=== PATIENT | male | born 1955 | race Two or more races ===

== ENCOUNTER 2020-11-08 09:02 | Outpatient (REF) | payer MEDICARE, MEDICAID, SELFPAY ==
[2020-11-08 10:16] LABS: Hematocrit 43.1 % (42-52); Hemoglobin 14.2 g/dl (14.0-18.0); Mean Corpuscular HGB Conc 32.9 g/dl (31.0-36.0); Mean Corpuscular Volume 91.1 fL (80-98); Mean Platelet Volume 10.6 fL (9.4-12.4); Platelet Count 204 X10*3/uL (160-400); Red Blood Count 4.73 X10*6/uL (4.60-5.80); Red Cell Distribution Width 13.1 % (11.0-16.0); White Blood Count 9.8 X10*3/uL (4.8-10.8)
[2020-11-08 11:00] LABS: Alanine Aminotransferase 51 U/L (0-40); Albumin Level 4.4 g/dL (3.5-5.0); Alkaline Phosphatase 64 U/L (39-117); Anion Gap 16 (12-20); Aspartate Amino Transferase 30 U/L (5-37); Bilirubin Total 0.4 mg/dL (0.0-1.0); Blood Urea Nitrogen 18 mg/dL (9-16); Calcium 9.5 mg/dL (8.4-10.2); Carbon Dioxide 23 mmol/L (22-29); Chloride 104 mmol/L (96-108); Cholesterol 162 mg/dL; Estimated Glomerular Filt Rate > 60; Glucose Random 110 mg/dL (60-115); HDL Cholesterol 47 mg/dL; LDL Cholesterol Calculated 104 mg/dl; Potassium 4.4 mmol/L (3.3-5.1); Sodium 139 mmol/L (135-145); Total Protein 8.1 g/dL (6.5-8.0); Triglycerides 57 mg/dL
[2020-11-08 11:24] LABS: TSH reflex Free T4 0.57 uIU/mL (0.32-4.0)
[2020-11-08 11:31] LABS: Prostate Specific Antigen 1.35 ng/mL (<0.05-4.0)
== END 2020-11-08 09:03 | disposition home or self-care (01) ==
LOC: HO.LAB 09:02
PROVIDERS: PCP General Practice; Visit Provider General Practice
DX: I10 Essential (primary) hypertension (principal)
CPT/HCPCS: 36415; 80053; 80061; 84153; 84443; 85027

== ENCOUNTER 2021-06-26 18:15 | Emergency (ER) | payer OTHER, SELFPAY ==
--- NOTE | ~2021-06-26 | CT_ITS ---
EXAMINATION: CT ABDOMEN AND PELVIS WITH CONTRAST CLINICAL INFORMATION: Right lower quadrant and right flank pain. Evaluate for appendicitis or stone. COMPARISON: None TECHNIQUE: Multidetector volumetric images were obtained from the superior aspect of the liver through the pubic symphysis following administration 85 mL of Omnipaque 350 intravenous contrast. Sagittal and coronal reformatted images were obtained on the technologist's workstation. Oral contrast: No This CT examination was performed using dose optimization techniques as appropriate, variously including the following: *Automated exposure control *Adjustment of mA and/or kV according to patient size (this includes techniques or standardized protocols for targeted exams where dose is matched to indication/reason for exam; i.e. extremities or head) *Use of iterative reconstruction technique DLP: 1100 mGy-cm FINDINGS: LUNG BASES: The visualized lung bases are unremarkable. LIVER, GALLBLADDER, AND BILIARY TREE: The liver is normal in size, shape, and attenuation. No focal hepatic lesion or biliary ductal dilatation is present. Gallbladder unremarkable. PANCREAS: Unremarkable. SPLEEN: Unremarkable. ADRENAL GLANDS: Unremarkable. KIDNEYS AND URETERS: The kidneys are normal in size, shape, and attenuation. Bilateral subcentimeter simple fluid attenuating cysts are benign and require no further follow-up. No hydronephrosis, hydroureter, or calculi seen. No perinephric stranding. BLADDER: Unremarkable. GASTROINTESTINAL TRACT: The appendix is normal. Stomach, small and large bowel are unremarkable. ABDOMINAL WALL: No significant hernia is appreciated. LYMPH NODES: Normal. VASCULAR: Aorta mildly atherosclerotic but normal caliber. Patent venous structures. PELVIC VISCERA: Unremarkable. OSSEOUS STRUCTURES: No acute or suspicious osseous abnormalities. Degenerative changes present throughout the imaged spine. CT/CT abdomen pelvis w con IMPRESSION: No urinary calculi or hydronephrosis. Normal appendix. No acute findings within the abdomen or pelvis to explain the patient's symptomatology.
[2021-06-26 19:10] VITALS: BP 164/86; PULSE 79; O2SAT 97
[2021-06-26 19:16] VITALS: BP 142/69; PULSE 74; RESP 16; TEMP 36.6; O2SAT 98; BMI 28.3
[2021-06-26 22:54] LABS: MANUAL DIFF FLAG NO
[2021-06-26 23:13] LABS: Basophils Percent Auto 0.1 % (0-2); Eosinophils Absolute Auto 0.1 X10*3/uL (0.0-0.4); Eosinophils Percent Auto 1.3 % (0-4); Hematocrit 42.1 % (42.0-52.0); Hemoglobin 13.5 g/dl (14.0-18.0); Imm Gran Abs Auto 0.03 X10*3/uL (0.00-0.03); Imm Gran Pct Auto 0.3 % (0.0-0.4); Lymphocytes Absolute Auto 1.7 X10*3/uL (1.2-4.9); Lymphocytes Percent Auto 18.3 % (20-40); Mean Corpuscular HGB Conc 32.1 g/dl (31.0-36.0); Mean Corpuscular Hemoglobin 28.1 pg (27.0-33.0); Mean Corpuscular Volume 87.5 fL (80.0-98.0); Mean Platelet Volume 10.8 fL (9.4-12.4); Monocytes Absolute Auto 0.4 X10*3/uL (0.1-1.2); Monocytes Percent Auto 4.1 % (2-11); Neutrophils Absolute Auto 7.2 x10*3/uL (2.0-8.3); Neutrophils Percent Auto 75.9 % (45-73); Platelet Count 193 X10*3/uL (160-400); Red Blood Count 4.81 X10*6/uL (4.60-5.80); Red Cell Distribution Width 14.1 % (11.0-16.0); White Blood Count 9.5 X10*3/uL (4.8-10.8)
[2021-06-26 23:15] LABS: Alanine Aminotransferase 20 U/L (0-40); Albumin Level 4.3 g/dL (3.5-5.0); Alkaline Phosphatase 73 U/L (39-117); Anion Gap 10 (12-20); Aspartate Amino Transferase 14 U/L (5-37); Bilirubin Total 0.5 mg/dL (0.0-1.0); Blood Urea Nitrogen 14 mg/dL (9-16); Calcium 9.7 mg/dL (8.4-10.2); Carbon Dioxide 28 mmol/L (22-29); Chloride 106 mmol/L (96-108); Creatinine Clr Calc Pharmacy 96.7; Estimated Glomerular Filt Rate > 60; Glucose Random 119 mg/dL (60-115); Lipase 48 U/L (8-78); Potassium 4.3 mmol/L (3.3-5.1); Sodium 140 mmol/L (135-145); Total Protein 7.4 g/dL (6.5-8.0)
[2021-06-26 23:18] VITALS: BP 115/55; PULSE 69; RESP 16; TEMP 36.4
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
[2021-06-27] MEDS: 0.9 % Sodium Chloride 1,000 ML 999 ML IV (00:10)
[2021-06-27] MEDS: Ketorolac Tromethamine 15 MG/ML VIAL IVPUSH (00:14)
[2021-06-27] MEDS: ondansetron HCL 4 MG/2 ML VIAL IVPUSH (00:14)
[2021-06-27] MEDS: iohexoL 350 MG/ML 100 ML INFUS..BTL 85 ML IV (00:45)
[2021-06-27 02:14] LABS: Appearance Urine CLEAR; Color Urine YELLOW; Glucose Urine UA NEG (NEG); Leukocyte Esterase Urine NEG (NEG); Nitrite Urine NEG (NEG); PH 6.5 (5.0-8.0); Specific Gravity - Urine <= 1.005 (1.005-1.025); Urine Blood NEG (NEG); Urine Ketones NEG (NEG); Urine Protein NEG (NEG-TRACE)
[2021-06-27] MEDS: Tamsulosin HCL 0.4 MG CAPSULE PO (02:21)
[2021-06-27] MEDS: levoFLOXacin 500 MG TABLET PO (02:21)
== END 2021-06-27 02:29 | disposition home or self-care (01) ==
PROVIDERS: Emergency Provider Emergency Medicine Emergency Medical Services; PCP General Practice
DX: N41.9 Inflammatory disease of prostate, unspecified (principal); R22.2 Localized swelling, mass and lump, trunk; R10.2 Pelvic and perineal pain; R10.31 Right lower quadrant pain; N50.811 Right testicular pain; Z79.899 Other long term (current) drug therapy
CPT/HCPCS: 36415; 74177; 80053; 81003; 83690; 85025; 99284; J1885; J2405; Q9967

== ENCOUNTER 2021-07-20 21:00 | Emergency (ER) | payer OTHER, SELFPAY ==
--- NOTE | ~2021-07-20 | US_ITS ---
EXAMINATION: US VENOUS ULTRASOUND WITH DOPPLER LOWER EXTREMITY, RIGHT CLINICAL INFORMATION: Right lower extremity pain COMPARISON: None TECHNIQUE: Ultrasound of the deep veins is performed from the hip to the calf with compression sonography and color and pulse Doppler assessment. Spectral analysis with color-flow imaging is performed. FINDINGS: There is normal venous compression and respiratory variation and augmented flow. The visualized common femoral vein, superficial femoral vein, profunda femoral vein, popliteal vein, and the trifurcation region shows no evidence of deep venous thrombosis. The posterior tibial vein is seen and appears normal. The peroneal vein is not seen. There is no significant popliteal fossa cyst. If the patient's symptoms persist, followup ultrasound in 5 days 7 days might be of value to exclude proximal propagation from a non-visualized calf vein. US/US venous duplex LE RT IMPRESSION: No DVT demonstrated in the right lower extremity. There was nonvisualization of the peroneal veins.
--- NOTE | ~2021-07-20 | XR_ITS ---
EXAMINATION: XR HIP, RIGHT CLINICAL INFORMATION: Right hip pain. COMPARISON: None TECHNIQUE: AP pelvis and two-view series of the right hip of the right hip. FINDINGS: Multifocal enthesopathic changes are noted. No fractures or subluxations are identified. No gross arthropathic changes of the right hip visualized. Partial visualization is made of multilevel endplate and facet hypertrophic changes within the lower lumbar spine. XR/XR hip RT w PEL1V IMPRESSION: *No acute abnormalities identified.
[2021-07-20 21:14] VITALS: BP 174/98; PULSE 80
[2021-07-20 21:23] VITALS: BP 131/86; PULSE 69; RESP 15; TEMP 36.5; O2SAT 98; BMI 29.6
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
[2021-07-21 00:48] VITALS: PULSE 86; RESP 16; O2SAT 96
[2021-07-21 01:26] LABS: Appearance Urine HAZY; Color Urine YELLOW; Glucose Urine UA NEG (NEG); Leukocyte Esterase Urine NEG (NEG); Nitrite Urine NEG (NEG); PH 6.5 (5.0-8.0); Specific Gravity - Urine 1.025 (1.005-1.025); Urine Blood NEG (NEG); Urine Ketones NEG (NEG); Urine Protein NEG (NEG-TRACE)
[2021-07-21 02:02] VITALS: BP 152/77; PULSE 77; RESP 18; O2SAT 98
[2021-07-21] MEDS: oxyCODONE HCl Immed Release 5 MG TABLET PO (02:37)
== END 2021-07-21 03:58 | disposition home or self-care (01) ==
PROVIDERS: Emergency Provider Emergency Medicine
DX: R10.30 Lower abdominal pain, unspecified (principal); G89.29 Other chronic pain; M79.604 Pain in right leg; M25.551 Pain in right hip; I10 Essential (primary) hypertension
CPT/HCPCS: 51798; 73502; 81003; 93971; 99284; 99285

== ENCOUNTER 2023-02-16 10:50 | Outpatient (REF) | payer OTHER, SELFPAY ==
--- NOTE | ~2023-02-16 | MR_ITS ---
EXAMINATION: MRI ABDOMEN WITH AND WITHOUT CONTRAST CLINICAL INFORMATION: PANCREATIC CYST SEEN IN 2020 COMPARISON: 06/28/[address] scan TECHNIQUE: Multiple routine MRI sequences through the abdomen were obtained on a high-field 1.5Tesla MRI. Pre-and postcontrast images with 8 mL of Gadavist intravenous contrast were obtained. This included a dynamic contrast-enhanced technique. FINDINGS: Lung bases: The visualized lung bases are unremarkable. Liver: The liver is normal in size, shape, and signal. No suspicious focal hepatic lesions seen. Specifically no suspicious arterial phase enhancing lesions or suspicious washout of contrast on later phases. No biliary ductal dilatation. Gallbladder: Likely mild adenomyomatosis of the gallbladder fundus. No suspicious gallstones or filling defects. No gallbladder wall thickening or pericholecystic inflammatory changes. Pancreas: Specific attention was given to the pancreas. In the medial most aspect of the uncinate process, there is a subtle T2 bright cystic structure measuring up to 1.2 cm in diameter when measured on the axial images. On a thick slab MIP coronal images this is more irregular in shape measuring 1.5 x 1.3 cm in size. There is a smaller 0.7 cm cystic structure seen along the right-sided aspect of the uncinate processes well I do not appreciate any abnormal enhancement. This was much more subtle process on the 06/27/2021 CT scan but the medial cystic component also measured 1.2 cm in size in retrospect on the prior CT scan. Pancreatic parenchyma is otherwise homogeneous in signal. No pancreatic ductal dilatation or obstruction. No peripancreatic inflammatory changes or fluid. Spleen: Unremarkable Adrenals: Unremarkable Kidneys: Kidneys are normal in size, shape, and signal. No suspicious renal mass lesion seen. No hydronephrosis or perinephric edema. Other: There is partial visualization of a fat-containing lesion deep to the right scapula. On the axial images this currently measures up to 8.3 x 4.8 cm in size and in similar orientation on the prior 06/27/2021 CT scan this had measured 10.6 x 5.1 cm in size. There is some heterogeneity to the fat signal currently as well as on the prior study possibly due to component of underlying fat necrosis. This is incompletely assessed on this abdominal MRI. Clinical correlation would be helpful. MR/MR abdomen wo/w con IMPRESSION: 1. There are 2 small T2 bright cystic structures seen within the uncinate process of the pancreas as described above. I do not appreciate any suspicious or worrisome features at this time. The larger cystic structure in the medial most aspect of the uncinate process of the pancreas measures up to 1.5 cm in maximal diameter on the coronal thick slab MIP images. The smaller cystic structure along the right-sided aspect of the uncinate process measures 0.7 cm in size. The cystic changes were less well appreciated on the prior CT scan. But where seen, the medial component is similar in size. I do not appreciate any suspicious or worrisome features to these cystic structures. Etiology is uncertain. Sequela of prior pancreatitis would be favored with this appearance and distribution. Branch duct IPM) would be difficult to exclude. There are several different paradigms for following pancreatic cysts. Follow-up MRI in one years time may be helpful to assure stability. 2. There is partial visualization of a fat-containing lesion deep to the right scapula. This is incompletely assessed on this abdominal MRI. There is some heterogeneity to the fat signal currently as well as on the prior study possibly due to component of underlying fat necrosis. Low-grade fatty lesions such as lipoma with internal fat necrosis could have this appearance but this is incompletely assessed on this abdominal MRI. Clinical correlation would be helpful.
[2023-02-16] MEDS: gadobutroL 10 ML VIAL IVPUSH (11:56)
== END 2023-02-16 10:51 | disposition home or self-care (01) ==
LOC: HO.MRI 10:50
PROVIDERS: PCP General Practice; Visit Provider General Practice
DX: K86.2 Cyst of pancreas (principal)
CPT/HCPCS: 74183; A9585

== ENCOUNTER 2024-01-07 15:37 | Emergency (ER) | payer OTHER, SELFPAY ==
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
[2024-01-07 15:53] VITALS: BP 133/84; PULSE 76; RESP 20; TEMP 37.2; O2SAT 98; BMI 26.6
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
--- OUTSIDE RECORDS SUMMARY | 2024-01-07 17:26 | XMS_ITS | Continuity of Care Document ---
Author Organization [employer] ter Address [address] [place] [address]- Care Team Providers Care Stem Roller Or Crusher Operator Name Role Phone Kate Garvin MD Primary Care Physician [place] [facility] [place] 12/08/[address] [address]- Discharge Disposition: A-Transfer SNF Attending Physician: Donny Portillo MD Admitting Physician: Donny Portillo MD Referring Physician: Not on Staff, Referring MD Allergies, Adverse Reactions, Alerts Substance Reaction Severity Status NKA Active Immunizations Given and Recorded Vaccine Date Status Refusal Reason SARS-CoV-2 (COVID-19) Ad26 vaccine 06/27/20 Record ed tetanus/diphtheria/pertussis, acel(Tdap) 02/06/13 Recorded Medications acetaminophen 325 mg oral tablet 650 mg, 2, tablet, By Mouth, Every 4 hours, PRN, Refills 0, Maintenance, Pain , Mild, 12/02/20 8:47:00 EDT, Partial fill upon patient request if the prescription is for a schedule II opioid drug. Start Date: 12/02/20 Status: Ordered apixaban = 10 mg, By Mouth, 2 times a day, 0 Refills, Maintenance, 12/02/20 8:47:00 EDT, Tablet, Partial fill upon patient request if the prescription is for a schedule II opioid drug. Start Date: 12/02/20 Status: Ordered aspirin 81 mg oral delayed release tablet 1 tablet = 81 mg, By Mouth, Daily, Maintenance, 11/16/20 11:22:00 EDT, CR Tablet Start Date: 11/16/20 Status: Ordered atorvastatin 10 mg oral tablet 1 tablet = 10 mg, By Mouth, Daily, Maintenance, 11/16/20 11:22:00 EDT Start Date: 11/16/20 Status: Ordered bisacodyl 10 mg rectal suppository 1 supp = 10 mg, Rectally, Daily, 0 Refills, Maintenance, 12/02/20 8:48:00 EDT, Suppository, Partialfill upon patient request if the prescription is for a schedule II opioid drug. Start Date: 12/02/20 Status: Ordered cholecalciferol 1000 intl units oral tablet 1 tablet = 25 mcg, By Mouth, Daily, Maintenance, 11/16/20 11:22:00 EDT, Tablet Start Date: 11/16/20 Status: Ordered Colace sodium 100 mg oral capsule 100 mg, 1, capsule, By Mouth, 2 times a day, Refills 0, Maintenance, 12/02/20 8:48:00 EDT, Partial fill upon patient request if the prescription is for a schedule II opioid drug. Start Date: 12/02/20 Status: Ordered Duoneb Inhalation Solution 1, vials, BAND Nebulizer, 4 times a day, Refills 0, Maintenance, 12/02/20 8:47:00 EDT, Inhalation Solution Start Date: 12/02/20 Status: Ordered famotidine 20 mg oral tablet 20 mg, 1, tablet, By Mouth, 2 times a day, PRN, Maintenance, as needed, 11/16/20 11:22:00 EDT Start Date: 11/16/20 Status: Ordered gabapentin 300 mg oral capsule 300 mg, 1, capsule, By Mouth, 3 times a day, Refills 0, Maintenance, 12/02/20 8:48:00 EDT, Partial fill upon patient request if the prescription is for a schedule II opioid drug. Start Date: 12/02/20 Status: Ordered gabapentin 300 mg oral capsule 300 mg, Capsule, By Mouth, 12/08/20 15:00:00 EDT Start Date: 12/08/20 Stop Date: 12/08/20 Status: Completed Insulin Lispro 2-10 units, Subcutaneous Injection, 3 times a day with meals, 0 Refills, Maintenance, 12/02/20 8:51:00 EDT, Injection, Partial fill upon patient request if the prescription is for a schedule II opioid drug. Start Date: 12/02/20 Status: Ordered lisinopril 20 mg oral tablet 30 mg, 1.5, tablet, By Mouth, Daily, Maintenance, 11/16/20 11:22:00 EDT Start Date: 11/16/20 Status: Ordered Ocular Lubricant Eye, Left, Every 4 hours, PRN Other, Dryness., 0 Refills, Maintenance, 12/02/20 8:51:00 EDT, Ophth Solution, Partial fill upon patient request if the prescription is for a schedule II opioid drug. Start Date: 12/02/20 Status: Ordered thiamine 100 mg oral tablet 100 mg, 1, tablet, By Mouth, Daily, Refills 0, Maintenance, 12/02/20 8:51:00 EDT, Partial fill uponpatient request if the prescription is for a schedule II opioid drug. Start Date: 12/02/20 Status: Ordered Results Orders for Microbiology Reports Name Date Urine Culture 11/18/20 Microbiology Reports TEST:Urine Culture STATUS:Auth (Verified) BODY SITE: SOURCE:SUKH COLLECTED DATE/TIME:11/18/20 9:45 PM Urine Culture SPECIMEN DESCRIPTION : BLADDER SPECIAL REQUESTS : NONE CULTURE : >100,000 COL/ML ESCHERICHIA COLI REPORT STATUS : FINAL 11/21/2020 ORGANISM >100,000 COL/ML ESCHERICHIA COLI METHOD MIN. INHIB. CONC. (MCG/ML) AMPICILLIN SUSCEPTIBLE AMPICILLIN/SULBACTAM SUSCEPTIBLE AMOXICILLIN/CLAVULAN SUSCEPTIBLE CEFAZOLIN SUSCEPTIBLE CEFEPIME SUSCEPTIBLE CEFTRIAXONE SUSCEPTIBLE CIPROFLOXACIN SUSCEPTIBLE ERTAPENEM SUSCEPTIBLE GENTAMICIN SUSCEPTIBLE LEVOFLOXACIN SUSCEPTIBLE MEROPENEM SUSCEPTIBLE PIPERACILLIN/TAZOBAC SUSCEPTIBLE TRIMETH/SULFAMETHOX SUSCEPTIBLE TETRACYCLINE SUSCEPTIBLE Radiology Reports (Most Recent Ten) * Exam Date Time Procedure Performing Provider Status 12/07/20 4:21 PM Cervical Spine 3 Views or Less Alicia Shea; Auth (Verified) Notes: (Cervical Spine 3 Views or Less) Reason For Exam: Neurologic Abnormality RESULT: Cervical Spine 3 Views or Less Cervical Spine 3 Views or Less Reason: Neurologic Abnormality; Clinical Question(s): Fracture Dislocation; Special Instructions: please keep C-collar in place COMPARISON: 11/18/2020. FINDINGS: Only the proximal 6 cervical vertebra are well-visualized on this examination. Postoperative changes with ACDF changes at the C4/5 level are again noted without evidence of osseous incorporation of the intervertebral spacer. Alignment is maintained. There are underlying degenerative changes again noted. There is improving prevertebral soft tissue prominence. IMPRESSION: Limited examination. No acute process. Postoperative changes. If clinical concern persists, CT imaging is recommended. WSN: [id number] Ordering Physician: Tanya Samuels Dictated By: Librado Hill MD Dictated Date/Time: 12/07/20 4:31 pm Reviewed By: Librado Hill MD Signed By: Librado Hill MD Signed Date/Time: 12/07/20 4:31 pm Transcribed By: KATIA Transcribed Date/Time: 12/07/20 4:29 pm * Exam Date Time Procedure Performing Provider Status 11/26/20 6:59 AM Abdomen Comp Inc Dec ub and/or Erect Arie Soto; Auth (Verified) Notes: (Abdomen Comp Inc Decub and/or Erect) Reason For Exam: distension;Other: RESULT: Abdomen Comp Inc Decub and/or Erect Abdomen Comp Inc Decub and/or Erect 2 view INDICATION: distension; Clinical Question(s): Obstruction. COMPARISON: 11/24/[address] FINDINGS: Garcia catheter projects in the pelvis. Gas throughout nondistended large and small bowel loops. No significant air- fluid levels on the lateral view. No evidence of pneumoperitoneum. No acute osseous abnormality. IMPRESSION: Nonobstructive bowel gas pattern. WSN: [id number] Ordering Physician: Shira Lancaster Dictated By: Mike Ibarra MD Dictated Date/Time: 11/26/20 10:44 a Reviewed By: Mike Ibarra MD Signed By: Mike Ibarra MD Signed Date/Time: 11/26/20 10:44 am Transcribed By: KATIA Transcribed Date/Time: 11/26/20 10:42 am * Exam Date Time Procedure Performing Provider Status 11/24/20 7:13 AM Abdomen Comp Inc Dec ub and/or Erect Estefany Lira; Auth (Verified) Notes: (Abdomen Comp Inc Decub and/or Erect) Reason For Exam: Nausea/Vomiting RESULT: Abdomen Comp Inc Decub and/or Erect Abdomen Comp Inc Decub and/or Erect 1 view INDICATION/CLINICAL QUESTION: Nausea Vomiting; Clinical Question(s): Obstruction. COMPARISON: 11/23/2020 FINDINGS: Mild gaseous distention of large and small bowel loops, similar to prior. No evidence of pneumoperitoneum. No acute osseous abnormality. Garcia catheter projects in the bladder. IMPRESSION: Persistent mild gaseous distention of large and small bowel, likely due to ileus. WSN: [id number] Ordering Physician: Shira Lancaster Dictated By: Mike Ibarra MD Dictated Date/Time: 11/24/20 9:46 am Reviewed By: Mike Ibarra MD Signed By: Mike Ibarra MD Signed Date/Time: 11/24/20 9:46 am Transcribed By: KATIA Transcribed Date/Time: 11/24/20 9:44 am * Exam Date Time Procedure Performing Provider Status 11/24/20 7:13 AM Chest 2 Views Frontal and Lat Estefany Lira; Auth (Verified) Notes: (Chest 2 Views Frontal and Lat) Reason For Exam: quadriplegic, post-op;Other: RESULT: Chest 2 Views Frontal and Lat Chest 2 Views Frontal and Lat INDICATION: quadriplegic, post-op; Clinical Question(s): Pneumonia / Pneumonia COMPARISON: 11/22/2020 FINDINGS: LINES AND TUBES: Right internal jugular central venous catheter tip projects in the SVC. LUNGS AND PLEURA: Low lung volumes with mild basilar atelectasis. Lungs are otherwise clear with no definite consolidation. No pleural effusion. No pneumothorax. HEART, MEDIASTINUM AND VINCENT: Heart appears enlarged but this is likely exaggerated by technique. Normal mediastinal and hilar contour. BONES AND SOFT TISSUES: Partially visualized ACDF hardware. IMPRESSION: No evidence of acute abnormality. WSN: [id number] Ordering Physician: Shira Lancaster Dictated By: Mike Ibarra MD Dictated Date/Time: 11/24/20 9:44 am Reviewed By: Mike Ibarra MD Signed By: Mike Ibarra MD Signed Date/Time: 11/24/20 9:44 am Transcribed By: KATIA Transcribed Date/Time: 11/24/20 9:42 am * Exam Date Time Procedure Performing Provider Status 11/23/20 1:01 PM Abdomen Comp Inc Dec ub and/or Erect Do , Barry; Auth (Verified) Notes: (Abdomen Comp Inc Decub and/or Erect) Reason For Exam: Distention RESULT: Abdomen Comp Inc Decub and/or Erect Abdomen Comp Inc Decub and/or Erect 4 view INDICATION/CLINICAL QUESTION: Reason: Distention; Clinical Question(s): Obstruction. COMPARISON: Prior abdominal radiographs, most recently November 19, [address] of the abdomen and pelvis dated November 17, 2020. FINDINGS: Persistent gaseous distention of stomach and small bowel loops with normal caliber gas-filled loopsof colon. Overall, appearance is slightly improved from the prior study, with small bowel loops appearing less intensely distended. No free air on the left lateral decubitus images. No unexpected calcifications or evidence of organomegaly. Mild degenerative changes throughout the spine and hips. Rectal catheter projects over the low pelvis. IMPRESSION: Persistent but likely slightly decreased gaseous distention of stomach, small, and large bowel loops when compared with the prior study, representing either ileus or persistent partial obstruction. No free air. WSN: [id number] Ordering Physician: Shira Lancaster Dictated By: Kalia Reyes MD Dictated Date/Time: 11/23/20 1:13 pm Reviewed By: Kalia Reyes MD Signed By: Kalia Reyes MD Signed Date/Time: 11/23/20 1:13 pm Transcribed By: KATIA Transcribed Date/Time: 11/23/20 1:10 pm * Exam Date Time Procedure Performing Provider Status 11/22/20 11:50 AM Chest 2 Views Frontal and Lat Mallory Jimenez; Melanie (Verified) Notes: (Chest 2 Views Frontal and Lat) Reason For Exam: high cervical spine injury;Other: RESULT: Chest 2 Views Frontal and Lat Chest 2 Views Frontal and Lat INDICATION: Reason: Other:; high cervical spine injury; Clinical Question(s): Atelectasis COMPARISON: 11/18/2020. FINDINGS: LINES AND TUBES: A right-sided IJ central line sheath introducer is noted terminating in the mid SVC. LUNGS AND PLEURA: The lungs are clear and the pulmonary vascularity is normal. No effusion or pneumothorax. HEART, MEDIASTINUM AND VINCENT: Normal. BONES AND SOFT TISSUES: Incompletely visualized plate and screw stabilizing the C4-C5 level is noted. IMPRESSION: No consolidation or edema. Clear lungs. Incompletely visualized plate and screws stabilizing the C4-C5 injury level. WSN: [id number] Ordering Physician: Stephanie Brantley Dictated By: Sonja Cain MD Dictated Date/Time: 11/22/20 12:10 p Reviewed By: Sonja Cain MD Signed By: Sonja Cain MD Signed Date/Time: 11/22/20 12:10 pm Transcribed By: KATIA Transcribed Date/Time: 11/22/20 12:05 pm * Exam Date Time Procedure Performing Provider Status 11/19/20 8:32 AM Foot Min 3 Views Right Ernestine Jimenez (Verified) Notes: (Foot Min 3 Views Right) Reason For Exam: Trauma RESULT: Foot Min 3 Views Right Foot Min 3 Views Right, 3 views Reason: Trauma; Clinical Question(s): Fracture COMPARISON: None. FINDINGS: No acute fracture or dislocation is identified. There are degenerative versus Charcot changes suggest in the midfoot. IMPRESSION: No acute fracture or dislocation. Probable degenerative changes. If there is clinical concern for a Lisfranc injury, CT imaging recommended. WSN: [id number] Ordering Physician: Brian Aldana Dictated By: Librado Hill MD Dictated Date/Time: 11/19/20 9:53 am Reviewed By: Librado Hill MD Signed By: Librado Hill MD Signed Date/Time: 11/19/20 9:53 am Transcribed By: KATIA Transcribed Date/Time: 11/19/20 9:48 am * Exam Date Time Procedure Performing Provider Status 11/19/20 12:26 AM Abdomen Comp Inc Dec ub and/or Erect Annie Foley; Auth (Verified) Notes: (Abdomen Comp Inc Decub and/or Erect) Reason For Exam: Distention RESULT: Abdomen Comp Inc Decub and/or Erect Abdomen Comp Inc Decub and/or Erect 2 view INDICATION/CLINICAL QUESTION: Reason: Distention. COMPARISON: Multiple priors, the most recent 11/16/2020 FINDINGS: An enteric tube is present with its tip in the stomach. There is persistent dilatation of multiple gas-filled small bowel loops, with the largest measuring5.0 cm in caliber before correction for magnification effect compared with 4.8 cm in the most recent prior study. Gas is noted in the ascending and transverse colon without any evidence of colonic dilatation. No intramural gas. No evidence of pneumoperitoneum. No organomegaly, masses or calcifications. No acute bone findings. Lung bases are clear. IMPRESSION: Unchanged dilatation of multiple small bowel loops compared with 11/16/2020, with gas noted in the proximal portion of a nondilated colon. Findings are most consistent with ileus although partial SBO cannot be excluded. Tip of enteric tube in the stomach. WSN: [id number] Ordering Physician: Kassidy Garces Dictated By: Adal Schultz MD Dictated Date/Time: 11/19/20 8:33 am Reviewed By: Adal Schultz MD Signed By: Adal Schultz MD Signed Date/Time: 11/19/20 8:33 am Transcribed By: KATIA Transcribed Date/Time: 11/19/20 8:28 am * Exam Date Time Procedure Performing Provider Status 11/18/20 6:41 PM Cervical Spine 3 Views or Less Rm Mendoza (Verified) Notes: (Cervical Spine 3 Views or Less) Reason For Exam: sp acdf;Postop RESULT: Cervical Spine 3 Views or Less Cervical Spine 3 Views or Less INDICATION: Reason: Postop; sp acdf; Special Instructions: Upright AP Lateral with [place] collar in place; Order Comment: Upright AP Lateral with [place] collar in place COMPARISON: 11/12/2020 FINDINGS: There is an NG tube. There is persistent prevertebral soft tissue thickening measuring up to 1.7 cm thickness at C4 level, unchanged. This is presumably postoperative. Unchanged ACDF hardware at C4-C5, with a intervertebral disc spacer. C6 and C7 are obscured by overlying soft tissue. IMPRESSION: Stable exam. Persistent prevertebral soft tissue thickening is presumably postoperative. WSN: [id number] Ordering Physician: Holly Aviles Dictated By: Mariia Swan MD Dictated Date/Time: 11/18/20 7:22 pm Reviewed By: Mariia Swan MD Signed By: Mariia Swan MD Signed Date/Time: 11/18/20 7:22 pm Transcribed By: KATIA Transcribed Date/Time: 11/18/20 7:19 pm * Exam Date Time Procedure Performing Provider Status 11/18/20 3:05 PM Chest Portable Jennifer Saeed (Verified) Notes: (Chest Portable) Reason For Exam: Tube Placement RESULT: Chest Portable Chest Portable INDICATION: Enteric tube placement COMPARISON: 11/17/2020 FINDINGS: LINES AND TUBES: Enteric tube extends below the diaphragm, with side ports and distal end projecting over the left upper quadrant; the first side-port is just past the GE junction. Right IJ central venous catheter is stable in position, with tip projecting over the central aspectof the right brachiocephalic vein or upper SVC. LUNGS AND PLEURA: Unchanged left basilar atelectasis. Otherwise, clear lungs. No pleural effusion. No pneumothorax. HEART, MEDIASTINUM AND VINCENT: Unchanged. BONES AND SOFT TISSUES: No acute abnormality. IMPRESSION: Enteric tube extends below the diaphragm, with side ports and distal end projecting over the left upper quadrant. The first side-port is just past the GE junction; recommend slight advancement. I have personally reviewed the images and I agree with this report. WSN: [id number] Ordering Physician: Holly Aviles Dictated By: Gio Flores DO Dictated Date/Time: 11/18/20 3:15 pm Reviewed By: Curt Koehler MD Signed By: Curt Koehler MD Signed Date/Time: 11/18/20 3:20 pm Transcribed By: KATIA Transcribed Date/Time: 11/18/20 3:13 pm Vital Signs Most recent to oldest [Reference Range]: 1 2 3 Height 167.6 cm (12/04/20 3:13 AM) 167.6 cm (12/03/20 11:51 PM) 167.6 cm (12/03/20 7:38 PM) Weight 80.9 kg (12/05/20 11:38 AM) 83.4 kg (11/29/20 8:00 AM) 95 kg (11/15/20 5:54 AM) Oxygen Saturation [94-100 %] 95 % (12/08/20 2:00 PM) 94 % (12/08/20 11:00 AM) 94 % (12/08/20 7:00 AM) Pulse Rate [55-90 bpm] 88 bpm (12/08/20 2:00 PM) 73 bpm (12/08/20 11:00 AM) 79 bpm (12/08/20 7:00 AM) Body Mass Index [18.5-24.99] 32 *>HHI* (11/11/20 11:16 PM) Blood Pressure [90-138/55-84 mm Hg] 106/73mm Hg (12/08/20 2:00 PM) 106/76mm Hg (12/08/20 11:00 AM) 99/76mm Hg (12/08/20 7:00 AM) Respiratory Rate [16-30 br/min] 16 br/min (12/08/20 3:19 PM) 16 br/min (12/08/20 2:19 PM) 18 br/min (12/08/20 2:00 PM) Temperature [96.8-100.4 DegF] 97.7 DegF (12/08/20 2:00 PM) 98.9 DegF (12/08/20 11:00 AM) 97.7 DegF (12/08/20 7:00 AM) Liters per Minute 3 L/min (11/16/20 4:00 PM) 3 L/min (11/16/20 2:00 PM) 3 L/min (11/16/20 12:00 PM) Mode of Delivery (Oxygen) Room air (12/08/20 2:00 PM) Room air (12/08/20 11:00 AM) Room air (12/08/20 7:00 AM) Blood pressure sites Arm, right (12/08/20 2:00 PM) Arm, right (12/08/20 11:00 AM) Arm, right (12/08/20 7:00 AM) Temperature Route Oral (12/08/20 2:00 PM) Oral (12/08/20 11:00 AM) Oral (12/08/20 7:00 AM) Dry Weight 89.9 kg (11/11/20 11:16 PM) 89.9 kg (11/11/20 10:43 PM) Weight Obtained Via Bed scale (12/05/20 11:38 AM) Bed scale (11/29/20 8:00 AM) Bed scale (11/15/20 5:54 AM) Dry Weight Obtained Via Bed scale (11/11/20 11:16 PM)
--- OUTSIDE RECORDS SUMMARY | 2024-01-07 17:26 | XMS_ITS | Continuity of Care Document ---
Author Organization [facility] Address [address] [place] [address]- Care Team Providers Care Environmental Scientist Name Role Phone Not on Staff, PCP Primary Care Physician Unavail able Encounter [facility] [place] Date(s): 12/10/20 - 01/09/21 [facility] [address] [place] [address]- Attending Physician: Lindsay Barnes Admitting Physician: Lindsay Barnes Referring Physician: Lindsay Barnes Allergies, Adverse Reactions, Alerts Substance Reaction Severity [...] opioid drug. Start Date: 12/02/20 Status: Ordered Insulin Lispro 2-10 units, Subcutaneous Injection, 3 [...]
--- OUTSIDE RECORDS SUMMARY | 2024-01-07 17:26 | XMS_ITS | Continuity of Care Document ---
Author Organization [facility] Address [address] [place] [address] [address], [address] [place] [address]- Care Team Providers Care Waste Removalist Name Role Phone Not on Staff, PCP Primary Care Physician Unavail able Encounter [facility] [place] Date(s): 02/07/21 - 03/09/21 [facility] [address] [place] [address] Drive, [address] [place] [address]- Allergies, Adverse Reactions, Alerts Substance Reaction Severity [...]
--- OUTSIDE RECORDS SUMMARY | 2024-01-07 17:26 | XMS_ITS | Continuity of Care Document ---
Author Organization [facility] Address [address] [place] [address]- Care Team Providers Care Clinical Laboratory Technologist Name Role Phone Not on Staff, PCP Primary Care Physician Unavail able Encounter [facility] [place] Date(s): 12/13/20 - 01/12/21 [facility] [address] [place] [address]- Attending Physician: Lindsay Barnes Admitting Physician: Lindsay [...]
--- OUTSIDE RECORDS SUMMARY | 2024-01-07 17:26 | XMS_ITS | Continuity of Care Document ---
Author Organization [facility] Address [address] [place] [address]- Care Team Providers Care Hammerer Tab Name Role Phone Not on Staff, PCP Primary Care Physician Unavail able [place] [facility] [place] - 01/12/21 [facility] [address] [place] [address]- Attending Physician: Lindsay Barnes Admitting Physician: Lindsay [...]
--- OUTSIDE RECORDS SUMMARY | 2024-01-07 17:26 | XMS_ITS | Continuity of Care Document ---
Author Organization [facility] Address [address] [place] [address] [address], [address] [place] [address]- Care Team Providers Care Compensation Analyst Name Role Phone Not on Staff, PCP Primary Care Physician Unavail able [place] [facility] [place] 02[place]14/21 [facility] [address] [place] [address] Drive, [address] [place] [address]- Attending Physician: Not on Staff, Attending MD Allergies, Adverse Reactions, Alerts Substance Reaction [...] opioid drug. Start Date: 12/02/20 Status: Ordered Vital Signs Most recent to oldest [Reference Range]: 1 Height 167.6 cm (02/07/21 9:51 AM) Weight 80.9 kg (02/07/21 9:51 AM) Body Mass Index [18.5-24.99] 28.8 *H* (02/07/21 9:51 AM)
--- OUTSIDE RECORDS SUMMARY | 2024-01-07 17:26 | XMS_ITS | Continuity of Care Document ---
Author Organization [facility] Address [address] [place] [address] [address], [address] [place] [address]- Care Team Providers Care Heel Sander Name Role Phone Not on Staff, PCP Primary Care Physician Unavail able Encounter [facility] [place] Date(s): 02/07/21 - 03/09/21 [facility] [address] [place] [address] Drive, [address] [place] [address]- Attending Physician: Lindsay Barnes Admitting Physician: AdmtrLindsay Referring Physician: Admtr, Ar8 Allergies, Adverse Reactions, Alerts Substance Reaction Severity [...]
--- OUTSIDE RECORDS SUMMARY | 2024-01-07 17:26 | XMS_ITS | Continuity of Care Document ---
Author Organization [facility] Address [address] [place] [address] [address], [address] [place] [address]- Care Team Providers Care Pediatric Dietician Name Role Phone Not on Staff, PCP Primary Care Physician Unavail able [place] [facility] [place] 02/07/21 - 03/09/21 [facility] [address] [place] [address] Drive, [address] [place] [address]- Attending Physician: Lindsay Barnes Admitting Physician: AdmtrLindsay [...]
--- OUTSIDE RECORDS SUMMARY | 2024-01-07 17:26 | XMS_ITS | Continuity of Care Document ---
Author Organization [facility] Address [address] [place] [address]- Care Team Providers Care Deck Cadet Name Role Phone Not on Staff, PCP Primary Care Physician Unavail able [place] [facility] [place] 01/09/21 [facility] [address] [place] [address]- Attending Physician: Lindsay Barnes Admitting Physician: Lindsay [...]
[2024-01-07 18:15] VITALS: BP 138/88; PULSE 72; RESP 20; TEMP 37; O2SAT 98
[2024-01-07 18:16] VITALS: BP 138/88; PULSE 72; RESP 20; TEMP 37; O2SAT 98
== END 2024-01-07 18:17 | disposition home or self-care (01) ==
PROVIDERS: Emergency Provider Emergency Medicine
DX: S16.1XXA Strain of muscle, fascia and tendon at neck level, initial encounter (principal); S13.4XXA Sprain of ligaments of cervical spine, initial encounter; M54.2 Cervicalgia; R51.9 Headache, unspecified; V43.62XA Car passenger injured in collision with other type car in traffic accident, initial encounter; Y93.9 Activity, unspecified; Y92.89 Other specified places as the place of occurrence of the external cause; Y99.8 Other external cause status; Z79.899 Other long term (current) drug therapy
CPT/HCPCS: 70450; 72125; 99283; 99284

== ENCOUNTER 2024-03-03 08:47 | Emergency (ER) | payer OTHER, SELFPAY ==
--- NOTE | ~2024-03-03 | CT_ITS ---
EXAMINATION: CT ABDOMEN AND PELVIS WITH CONTRAST CLINICAL INFORMATION: Right-sided abdominal pain COMPARISON: CT abdomen and pelvis June 27, 2021 TECHNIQUE: Multidetector volumetric images were obtained from the superior aspect of the liver through the pubic symphysis following administration 85 mL of Omnipaque 350 intravenous contrast. Sagittal and coronal reformatted images were obtained on the technologist's workstation. Oral contrast: No This CT examination was performed using dose optimization techniques as appropriate, variously including the following: *Automated exposure control *Adjustment of mA and/or kV according to patient size (this includes techniques or standardized protocols for targeted exams where dose is matched to indication/reason for exam; i.e. extremities or head) *Use of iterative reconstruction technique DLP: 818 mGy-cm FINDINGS: LUNG BASES: The visualized lung bases are unremarkable. LIVER, GALLBLADDER, AND BILIARY TREE: The liver is normal in size, shape, and attenuation. No focal hepatic lesion or biliary ductal dilatation is present. Physiologic distention of the gallbladder. PANCREAS: Unremarkable. SPLEEN: Unremarkable. ADRENAL GLANDS: Unremarkable. KIDNEYS AND URETERS: The kidneys are normal in size, shape, and attenuation. No hydronephrosis, hydroureter, or calculi seen. No perinephric stranding. BLADDER: The right anterior bladder wall is thickened and protrudes slightly into a right-sided inguinal hernia. GASTROINTESTINAL TRACT: The small and large bowel are unremarkable. The appendix is unremarkable. ABDOMINAL WALL: Right-sided inguinal hernia. LYMPH NODES: Normal. VASCULAR: Unremarkable. PELVIC VISCERA: The prostate is enlarged. OSSEOUS STRUCTURES: Degenerative changes of the lumbar spine. CT/CT abdomen pelvis w IV con IMPRESSION: Right-sided inguinal hernia containing a portion of the right anterior bladder wall. The bladder wall is thickened in this region. Recommend correlation with urinalysis. Fleischner guidelines were followed. Electronically signed by: Enrique Rebolledo MD 03/03/2024 01:27 PM [facility]
[2024-03-03 09:02] VITALS: BP 127/73; BP 143/86; PULSE 62; PULSE 72; RESP 18; TEMP 36.7; O2SAT 97; O2SAT 99; BMI 67.1
[2024-03-03 09:07] VITALS: BP 127/73; PULSE 93; RESP 18; TEMP 36.7; O2SAT 98
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
[2024-03-03 09:25] LABS: MANUAL DIFF FLAG NO
[2024-03-03 09:28] LABS: Basophils Percent Auto 0.3 % (0-2); Eosinophils Absolute Auto 0.1 X10*3/uL (0.0-0.4); Eosinophils Percent Auto 1.8 % (0-4); Hematocrit 42.3 % (42.0-52.0); Imm Gran Abs Auto 0.03 X10*3/uL (0.00-0.03); Imm Gran Pct Auto 0.4 % (0.0-0.4); Lymphocytes Absolute Auto 1.7 X10*3/uL (1.2-4.9); Lymphocytes Percent Auto 22.3 % (20-40); Mean Corpuscular HGB Conc 33.1 g/dl (31.0-36.0); Mean Corpuscular Hemoglobin 29.4 pg (27.0-33.0); Mean Corpuscular Volume 88.7 fL (80.0-98.0); Mean Platelet Volume 10.5 fL (9.4-12.4); Monocytes Absolute Auto 0.4 X10*3/uL (0.1-1.2); Monocytes Percent Auto 5.3 % (2-11); Neutrophils Absolute Auto 5.4 x10*3/uL (2.0-8.3); Neutrophils Percent Auto 69.9 % (45-73); Platelet Count 169 X10*3/uL (160-400); Red Blood Count 4.77 X10*6/uL (4.60-5.80); Red Cell Distribution Width 13.5 % (11.0-16.0); White Blood Count 7.7 X10*3/uL (4.8-10.8)
[2024-03-03 09:47] LABS: Troponin-I High Sensitivity < 2.7 ng/L (<3.5-35.0)
[2024-03-03 09:49] VITALS: RESP 22
[2024-03-03] MEDS: HYDROmorphone HCl 0.5 MG/0.5 ML SYRINGE IVPUSH (09:49)
[2024-03-03 10:51] LABS: Alanine Aminotransferase 29 U/L (0-40); Albumin Level 3.9 g/dL (3.5-5.0); Alkaline Phosphatase 65 U/L (39-117); Anion Gap 8 (12-20); Aspartate Amino Transferase 24 U/L (5-37); Bilirubin Total 0.5 mg/dL (0.0-1.0); Blood Urea Nitrogen 22 mg/dL (9-16); Calcium 9.3 mg/dL (8.4-10.2); Carbon Dioxide 27 mmol/L (22-29); Chloride 108 mmol/L (96-108); Creatinine Clr Calc Pharmacy 159.7; Estimated Glomerular Filt Rate > 60; Glucose Random 112 mg/dL (60-115); Lipase 35 U/L (8-78); Potassium 3.9 mmol/L (3.3-5.1); Sodium 139 mmol/L (135-145)
[2024-03-03] MEDS: iohexoL 350 MG/ML 100 ML INFUS..BTL IV (11:41)
[2024-03-03 11:59] VITALS: BP 131/70; PULSE 66; RESP 18; TEMP 36.9; O2SAT 95
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
[2024-03-03 14:51] LABS: Appearance Urine Clear; Color Urine Yellow; Glucose Urine UA Negative (Negative); Leukocyte Esterase Urine Negative (Negative); Nitrite Urine Negative (Negative); Specific Gravity - Urine >= 1.030 (1.005-1.025); UMIC TRIGGER UACC YES; Urine Blood Trace (Negative); Urine Ketones Trace mg/dL (Negative); Urine Protein Negative (Neg-Trace)
[2024-03-03 14:53] LABS: Bacteria Urine None Seen (None Seen); Hyaline Casts Urine 0-2 /LPF (0-2); Squamous Epithelial Cell Urine 0-2 /HPF (0-2); WBC Urine 0-5 /HPF (0-5)
[2024-03-03 16:00] VITALS: BP 128/70; PULSE 60; RESP 18; TEMP 36.9; O2SAT 98
[2024-03-03 17:26] VITALS: BP 128/70; PULSE 60; RESP 18; TEMP 36.9; O2SAT 98
== END 2024-03-03 17:40 | disposition home or self-care (01) ==
PROVIDERS: Emergency Provider Emergency Medicine
DX: K40.90 Unilateral inguinal hernia, without obstruction or gangrene, not specified as recurrent (principal); R10.2 Pelvic and perineal pain; Z79.899 Other long term (current) drug therapy
CPT/HCPCS: 36415; 74177; 80053; 81001; 83690; 84484; 85025; 96374; 99284; J1171; Q9967

== ENCOUNTER → 2024-03-03 09:24 | Outpatient (BNV) | payer OTHER, SELFPAY | PROVIDERS: Emergency Provider Emergency Medicine; Visit Provider Surgery | DX: K40.90 Unilateral inguinal hernia, without obstruction or gangrene, not specified as recurrent (principal) | CPT/HCPCS: 99283 ==

== ENCOUNTER 2024-03-13 10:50 | Outpatient (AMB) | payer OTHER, SELFPAY ==
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
[2024-03-13 11:02] VITALS: BP 117/56; PULSE 63
== END 2024-03-13 11:10 | disposition home or self-care (01) ==
PROVIDERS: Visit Provider Surgery
DX: K40.90 Unilateral inguinal hernia, without obstruction or gangrene, not specified as recurrent (principal)
CPT/HCPCS: 99203

== ENCOUNTER → 2024-03-13 10:50 | Outpatient (BNVA) | payer OTHER, SELFPAY | PROVIDERS: Visit Provider Surgery | DX: K40.90 Unilateral inguinal hernia, without obstruction or gangrene, not specified as recurrent (principal) | CPT/HCPCS: 99202 ==

== ENCOUNTER 2024-09-30 09:31 | Outpatient (REF) | payer OTHER, SELFPAY ==
--- OUTSIDE RECORDS SUMMARY | 2024-09-30 09:58 | XMS_ITS | Encounter Summary ---
Author Organization [employer] Address [address] [facility] [address] [place] [address] Care Team Providers Care Deadener Name Role Phone Madison Laird MD Primary Care Provider [phone] Reason for Visit * Reason Onset Date Comments Chart prep 09/29/2024 Encounter Details Date Type Department Care Team ([facility] st Contact Info) Description 09/29/2024 Telephone [facility] [address] [place] [address] Madison Laird MD [address] [place], [place] [phone] Chart prep Social History Tobacco Use Types Packs/Day Years Used Date Smoking Tobacco: Never Smokeless Tobacco: Never Alcohol Use Standard Drinks/Week Comments Not Currently 0 (1 standard drink = 0.6 oz pur e alcohol) Depression Answer Date Recorded Patient Health Questionnaire-9 Score 1 09/30/2024 Patient Health Questionnaire-9 Score 1 09/30/2024 Last PHQ-9: Questionnaire Data Not on file 0 09/30/2024 Housing Stability Answer Date Recorded What is your housing situation today? I have alexander campbell 09/30/[address] you li ve. Do you have problems with any of the following? None of the above 09/30/2024 Food Insecurity Answer Date Recorded Within the past 12 months, y ou worried that your food would run out before you got money to buy more: Never True 09/30/2024 Within the past 12 months,th e food you bought just didn't last and you didn't have enough money to get more: Never True 10/2024 Transportation Answer Date Recorded In the past 12 months, has l ack of transportation kept you from medical appts, meetings, work or from getting things needed for daily living? No 09/30/2024 Utilities Answer Date Recorded In the past 12 months, has t he electric, gas, oil or water company threatened to shut off services in your home? No 09/30/2024 Depression Answer Date Recorded Patient Health Questionnaire-2 Score 0 09/30/2024 Internet Access Answer Date Recorded Internet Access Q1 Yes 09/30/2024 Internet Access Q2 Not on file 09/30/2024 Sex and Gender Information Value Date Recorded Sex Assigned at Male 01/23/2022 10:16 AM EDT Legal Sex Male 10:16 AM EDT Gender Identity Male 01/23/2022 10:16 AM EDT Sexual Orientation Straight 01/23/2022 10 :16 AM EDT documented as of this encounter Miscellaneous Notes * Telephone Encounter - Kerry Vazquez [place] - 09/29/2024 9:41 AM EDT Chart Prep Labs: not done Images: done Referrals: complete Vaccines due: Covid, PCV20, RSV, and DTAP Screenings: colonoscopy Overdue care gaps: SBIRT, SDOH, PHQ-9, and ANTON-7 documented in this encounter Plan of Treatment Not on file documented as of this encounter Visit Diagnoses Not on filedocumented in this encounter Additional Health Concerns Assessment Noted Time PHQ-9 Depression Total Score: 0 04/19/19 24 9:25 AM EST documented as of this encounter Care Teams Deadener Relationship Specialty Start Date End Date Madison Laird MD [address] [place] [id number] PCP - General Family Medicine 11/27/19 documented as of this encounter
[2024-09-30 12:47] LABS: Hemoglobin A1C 147.2651 umol/L; Total Hemoglobin (HGBA1C) 3626.6301 umol/L
[2024-09-30 12:50] LABS: Alanine Aminotransferase 23 U/L (0-40); Albumin Level 4.6 g/dL (3.5-5.0); Alkaline Phosphatase 70 U/L (39-117); Anion Gap 11 (12-20); Aspartate Amino Transferase 29 U/L (5-37); Blood Urea Nitrogen 15 mg/dL (9-16); Calcium 9.3 mg/dL (8.4-10.2); Carbon Dioxide 26 mmol/L (22-29); Chloride 107 mmol/L (96-108); Cholesterol 138 mg/dL (<200); Estimated Glomerular Filt Rate > 60; HDL Cholesterol 37 mg/dL (>40); Potassium 4.1 mmol/L (3.3-5.1); Sodium 140 mmol/L (135-145); Total Protein 7.7 g/dL (6.5-8.0); Triglycerides 77 mg/dL (<150)
[2024-09-30 13:01] LABS: HIV Num 1 0.05 S/CO (0.00-0.99); ~HepC Num1 0.21 S/CO (0.00-0.79); ~Hepatitis C Antibody Nonreactive (Nonreactive)
== END 2024-09-30 09:32 | disposition home or self-care (01) ==
LOC: HO.HHCL 09:31
PROVIDERS: PCP General Practice; Visit Provider General Practice
DX: E66.3 Overweight (principal); Z13.1 Encounter for screening for diabetes mellitus
CPT/HCPCS: 36415; 80053; 80061; 83036; 86803; 87389

== ENCOUNTER 2024-10-21 14:04 | Outpatient (REF) | payer OTHER, SELFPAY ==
--- NOTE | ~2024-10-21 | MR_ITS ---
EXAMINATION: MR ABDOMEN WITHOUT AND WITH CONTRAST CLINICAL INFORMATION: 2 small cystic lesions, pancreatic uncinate process COMPARISON: February 16, 2023. TECHNIQUE: MR abdomen was performed without and with use of 9.0 mL intravenous gadolinium contrast. Postcontrast images are performed in multiphase dynamic sequences. Imaging was performed in 3 planes. No reported immediate complications. FINDINGS: LUNG BASES: No enhancing lesion in the [id number]. LIVER, GALLBLADDER, AND BILIARY TREE: Liver measures 15 cm. No enhancing lesion. The flow-void signal within the portal veins, hepatic veins and intrahepatic portion of the IVC are patent. Small layering intraluminal hypointense T2 round lesions in the gallbladder lumen. No pericholecystic fluid collection or cold bladder wall thickening. No intrahepatic or extrahepatic biliary ductal dilatation. Common bile duct measures 3 mm. PANCREAS: Multi septated and lobulated nonenhancing fluid signal characteristic lesion extending from the uncinate processes to the posterior pancreatic head with a maximum length of 2.5 cm. No main pancreatic ductal dilatation. No peripancreatic fluid collection. SPLEEN: 10 cm. No focal mass. ADRENAL GLANDS: No nodular lesions. KIDNEYS AND URETERS: There is a 1.1 cm nonenhancing fluid signal characteristic exophytic lesion in the upper pole left kidney. There are few scattered less than 0.9 cm fluid signal characteristic lesions throughout the right renal cortex. No hydronephrosis. No focal enhancing mass. No dilatation of the proximal ureters. GASTROINTESTINAL TRACT: No intestinal obstruction pattern. No intestinal wall thickening. ABDOMINAL WALL: Small tiny fat-containing umbilical hernia. LYMPH NODES: No gross mesenteric or retroperitoneal lymphadenopathy. VASCULAR: No aneurysm or dissection, abdominal aorta. OSSEOUS STRUCTURES: Multilevel thoracolumbar spondylosis. MR/MR abdomen wo/w con IMPRESSION: Stable nonenhancing lobulated and multiseptated cystic lesion, posterior head pancreas uncinate process. Cholelithiasis. Bosniak type I cysts, bilaterally. Electronically signed by: Guillermo Cates MD 10/21/2024 03:21 PM EDT
--- OUTSIDE RECORDS SUMMARY | 2024-10-21 14:50 | XMS_ITS | Encounter Summary ---
Author Organization [id number] Address [address] [facility] [address] [place] [address] Care Team Providers Care Diesel Engine Inspector Name Role Phone Madison Laird MD Primary Care Provider [phone] Reason for Referral * Imaging (Routine) - Authorized Specialty Diagnoses / Procedures Referred By Contac t Referred To Contact Radiology Diagnoses Cyst of pancreas Procedures MRI PANCREAS W WO CONTRAST Madison Laird MD [address] [place] [address] Phone: tel: fax: [address] Phone: tel: fax: Referral ID Status Reason Start Date Expiration Date V isits Requested Visits Authorized [id number] Authorized 10/10/2024 10/10/2025 1 1 Encounter Details Date Type Department Care Team (Late st Contact Info) Description 10/10/[address] [facility] [address] [place] [address] Madison Laird MD [address] [place], [place] [phone] Cyst of pancreas (Primary Dx) Social History Tobacco Use Types Packs/Day Years Used Date Smoking Tobacco: Never Smokeless Tobacco: Never Alcohol Use Standard Drinks/Week Comments Not Currently 0 (1 standard drink = 0.6 oz pur e alcohol) Alcohol Answer Date Recorded How often do you have a drink containing alcohol ? 0 09/30/2024 How many drinks containing a lcohol do you have on a typical day when you are drinking? 0 09/30/2024 How often do you have six or more drinks on one occasion? 0 09/30/2024 Depression Answer Date Recorded Patient Health Questionnaire-9 [...] things needed for daily living? No 09/30/2024 Intimate Partner Violence Answer Date R ecorded Within the last year, have y ou been afraid of your partner or ex-partner? 2 09/30/2024 Within the last year, have y ou been humiliated or emotionally abused in other ways by your partner or ex-partner? 2 Within the last year, have y ou been kicked, hit, slapped, or otherwise physically hurt by your partner or ex-partner? 2 09/30/2024 Within the last year, have y ou been raped or forced to have any kind of sexual activity by your partner or ex-partner? 2 09/30/2024 Utilities Answer Date Recorded In the past 12 months, has t he electric, gas, oil or water company threatened to shut off services in your home? No 09/30/2024 Depression Answer Date Recorded Patient Health Questionnaire-2 Score 0 09/30/2024 Internet Access Answer Date Recorded Internet Access Q1 No 09/30/2024 Internet Access Q2 I do not want or need it 10/2024 Sex and Gender Information Value Date Recorded Sex Assigned at Male 01/23/2022 10:16 AM EDT Legal Sex Male 10:16 AM EDT Gender Identity Male 01/23/2022 10:16 AM EDT Sexual Orientation Straight 01/23/2022 10 :16 AM EDT documented as of this encounter Plan of Treatment Scheduled Orders Name Type Priority Associated Diagnoses Orde r Schedule MRI PANCREAS W WO CONTRAST Imaging Routine Cyst of pancreas Expected: 10/10/2024, Expires: 10/10/2025 documented as of this encounter Visit Diagnoses Diagnosis Cyst of pancreas- Primary Cyst and pseudocyst of pancreas documented in this encounter Additional Health Concerns Assessment Noted Time PHQ-9 Depression Total Score: 1 10/01/19 25 8:52 AM EDT documented as of this encounter Care Teams Diesel Engine Inspector Relationship Specialty Start Date End Date Madison Laird MD [address] [place] [address] PCP - General Family Medicine 11/27/19 documented as of this encounter
== END 2024-10-21 14:05 | disposition home or self-care (01) ==
LOC: HO.MRI 14:04
PROVIDERS: PCP General Practice; Visit Provider General Practice
DX: K86.2 Cyst of pancreas (principal)
CPT/HCPCS: 74183; A9585

== ENCOUNTER → 2024-10-21 14:27 | Outpatient (BNV) | payer OTHER, SELFPAY | PROVIDERS: PCP General Practice; Visit Provider Radiology Diagnostic Radiology | DX: K86.2 Cyst of pancreas (principal) | CPT/HCPCS: 74183 ==